=== PATIENT | male | born 2000 | race Caucasian/White ===

== ENCOUNTER 2024-02-18 12:35 | Emergency (ER) | payer OTHER, SELFPAY ==
[2024-02-18 12:36] VITALS: BP 125/75
[2024-02-18 12:49] VITALS: BP 151/88
[2024-02-18 13:16] LABS: % Basophils 0.4 % (0-2); % Eosinophils 1.4 % (0-6); % Immature Granulocytes 0.4 % (0-0.5); % Lymphocytes 15.8 % (20.5-51.1); % Monocytes 10.7 % (1.7-9.3); % Neutrophils 71.3 % (42.2-75.2); Absolute Eosinophils 0.1 10^3/uL (0-0.7); Absolute Lymphocytes 1.3 10^3/uL (1.2-3.4); Absolute Monocytes 0.9 10^3/uL (0.1-0.6); Absolute Neutrophils 5.7 10^3/uL (1.4-6.5); Hematocrit 41.7 % (39.0-52.0); Mean Corpuscular Hgb 29.4 pg (27.0-31.0); Mean Corpuscular Volume 81.6 fL (80.0-94.0); Mean Platelet Volume 9.4 fL (7.4-10.4); Nucleated Red Blood Cells % 0 % (-); Platelet Count 269 10^3/uL (130-400); Red Blood Cell Count 5.11 10^6/uL (4.70-6.10); Red Cell Dist. Width 11.9 % (11.5-14.5); White Blood Cell Count 7.9 10^3/uL (4.8-10.8)
[2024-02-18 13:25] VITALS: BP 109/93
[2024-02-18 13:29] LABS: ALT (SGPT) 26 U/L (0-50); AST (SGOT) 32 U/L (17-59); Albumin 4.8 g/dl (3.5-5.0); Alkaline Phosphatase 71 U/L (38-126); Blood Urea Nitrogen 21 mg/dl (9-20); Calcium 9.8 mg/dl (8.4-10.2); Carbon Dioxide 26 mmol/L (22-30); Chloride 102 mmol/L (98-107); Glucose 112 mg/dl (70-99); Potassium 4.1 mmol/L (3.5-5.1); Sodium 137 mmol/L (135-145); Total Bilirubin 0.8 mg/dl (0.2-1.3); Total Protein 7.5 g/dl (6.3-8.2); eGFR > 60.00
[2024-02-18 13:31] LABS: INR 1.18; PT 14.8 Sec (11.4-14.6)
[2024-02-18 13:32] LABS: APTT 28.7 Sec (23.4-35.0)
--- NOTE | 2024-02-18 13:51 | ED.GENMED ---
History of Present Illness
General
Chief Complaint: Fall
Source: patient
Time Seen by Provider: 02/18/24 12:48
Travel History
Have you had any contact with someone who has COVID-19?: No
Do you have any symptoms of coronavirus? Fever > 100 degrees, chills, cough, shortness of breath, sore throat, loss of taste or smell, muscle aches, or headache?: No
History of Present Illness
History of Present Illness:
23-year-old male presenting to the emergency department for evaluation after he was at the top of a 15 foot ladder when he excellently fell straight down onto his buttock stating he is having significant left-sided buttock/back pain and left lower
leg pain. Patient states he does not believe he hit his head, loss consciousness or injured any other extremity. He did not take anything for pain prior to arrival. Patient's mother drove him to the ER for further evaluation. Patient has no
other significant medical history and denies any use of chronic medications. Denies any previous history of injury to the left leg or pelvis in the past
Past History
Past History
ED Past Medical History: None
ED Past Surgical History: Tonsilectomy
Social History
Tobacco: Non-smoker
Alcohol: None
Drug: None
Personal: Single
Living: with family
Employment: Employed
Review of Systems
Review of Systems
All Other Systems: ROS reviewed and negative except as documented in HPI and ROS
Phy Exam
Physical Exam
Physical Exam:
VITAL SIGNS: Vital signs reviewed, cooperative
DISTRESS: No active disease
EYES: Pupils reactive, no orbital trauma
NOSE: No deformity or epistaxis
FACE AND SCALP: No scalp or facial trauma, external canals no blood
NECK: Supple nontender
BACK: scale reclamation tender over the sacral region as well as the left posterior superior iliac spine and iliac crest, pelvis stable to compression
RESPIRATORY: No distress, breath sounds normal, no tender chest wall
CARDIAC: No murmur, pulses equal and strong
ABDOMEN: Soft nontender bowel sounds normal
SKIN: superficial contusions to the anterior left lower leg just distal to the knee, color normal
EXTREMITIES: Tenderness over the mid gastrocnemius left lower extremity. Easily palpable pedal and tibial pulses bilateral cap refill less than 2 seconds. Sensation grossly intact light touch.
NEUROLOGICAL: Alert, oriented, no motor deficits
PSYCH: Mood affect normal
Scores
Heart Failure Risk
Heart Failure Risk Score: Not Applicable
Heart Score for Chest Pain Patients
STEMI patient?: Not applicable
Withdrawal Assessment of Alcohol
Withdrawal Assessment Completed?: Not applicable
Course
Orders/Labs/Results
Orders:
Orders
02/18/24 12:53
CT Cervical Spine W/o Iv Contr Urgent
Comment:
Reason For Exam: fall 15 feet from ladder
CT Chest/abd/pel W Iv Cont Urgent
Reason For Exam: fall 15 feet from ladder,left sidedback/flank pain
CT Head W/o Iv Contrast Urgent
Comment:
Reason For Exam: fall 15 feet from ladder, ? head injury
02/18/24 13:06
Complete Blood Count/With Diff Urgent
Comprehensive Metabolic Panel Urgent
PTT Urgent
Prothrombin Time Urgent
02/18/24 13:26
Morphine Sulfate 4 mg IV NOW STA
02/18/24 13:27
CR Leg Tibia/fibula Left 2 Vw Urgent
Comment:
Reason For Exam: fall from ladder
02/18/24 13:30
Acetaminophen [Tylenol] 650 mg PO NOW STA
02/18/24 14:02
Crutches-Treatment ONCE
Abnormal Lab Results
02/18/24
13:06
Absolute Monos (auto) 0.9 H 10^3/uL
(0.1-0.6)
Lymphocytes % 15.8 L %
(20.5-51.1)
Monocytes % 10.7 H %
(1.7-9.3)
PT 14.8 H Sec
(11.4-14.6)
BUN 21 H mg/dl
(9-20)
Glucose 112 H mg/dl
(70-99)
02/18/24 13:06
02/18/24 13:06
Vital Signs
Initial and Last Documented VS:
Initial Vital Signs
Temp Pulse Resp BP Pulse Ox
98.2 F 80 20 125/75 95
02/18/24 12:36 02/18/24 12:36 02/18/24 12:36 02/18/24 12:36 02/18/24 12:36
Last Documented Vital Signs
Temp Pulse Resp BP Pulse Ox
98.2 F 70 16 110/69 98
02/18/24 12:36 02/18/24 14:28 02/18/24 14:28 02/18/24 14:28 02/18/24 14:28
MDM/Problems Addressed
Differential Diagnosis Includes:
Pelvic fracture, sacral fracture, left tib-fib fracture, contusion, other significant traumatic injury
MDM/Problems Addressed:
23-year-old male presenting emergency department for evaluation after reportedly falling 15 feet from a ladder. Patient noting significant left-sided pelvic pain and inability to press weight onto his left lower extremity. Due to the nature of the
injury trauma scans ordered. Patient initially declining anything for pain. Patient and mother in agreement with workup.
*Radiology
Radiology exam reviewed: radiology read reviewed
*Pulse Oximetry
Patient hypoxic: no
*Critical Care Note
Total Time (30-74mins, 75-104mins- exclusive of procedures): Not Applicable
Patient Management
Escalation/DeEscalation of care consider admission/obs:
Patient's imaging without any significant findings. X-ray unremarkable for any fracture of the left lower leg. Suspect significant contusion. Advised rest, NSAIDs and avoidance of any heavy lifting over the next few days. Stable for discharge
home and aware of return precautions.
ED Attending Note
-
Portions of this chart may have been created with voice recognition software.� Occasional wrong word or��sound alike� substitutions may have occurred due to the inherent limitations of voice recognition software.
Discharge Plan
Departure
Patient Disposition: Home (Routine Discharge)
Date of Disposition: 02/18/24
Time of Disposition: 14:02
Patient with high blood pressure during this ER visit?: No
Discharge Problem:
Fall from ladder, Contusion of pelvis, Leg pain, left
Instructions: Contusion (DC)
Prescriptions:
No Action
Acne Medication
1 tab PO HS
ibuprofen 600 MG tablet
600 mg PO Q6 PRN (Reason: pain) Qty: 20 0RF
Referrals:
Venu Ortega, DO [Family Provider] -
Interventions
Interventions:
*Risk Screen - Suicide Last Done: 02/18/24 12:36
*General Assessment Last Done: 02/18/24 12:36
*Neglect/Abuse Screening Last Done: 02/18/24 12:36
*Nursing Disposition Last Done: 02/18/24 14:28
ED-Musculoskeletal Assessment Last Done: 02/18/24 13:13
ED- Neurological Assessment Last Done: 02/18/24 13:13
ED-Skin Assessment Last Done: 02/18/24 13:13
Discharge Date and Time
Discharge Date/Time: 02/18/24 14:29
Print Language: OMANI
[2024-02-18 13:55] VITALS: BP 149/70
[2024-02-18 14:00] VITALS: BP 116/76
[2024-02-18] MEDS: TYLENOL 650 MG PO (14:04)
[2024-02-18 14:05] VITALS: BMI 29.6
[2024-02-18 14:28] VITALS: BP 110/69
== END 2024-02-18 14:29 | disposition home or self-care (01) ==
LOC: EMR 12:35
PROVIDERS: Physician Assistant Medical; EMERGENCY PHYSICIAN Emergency Medicine; FAMILY PHYSICIAN Family Medicine
DX: S30.0XXA Contusion of lower back and pelvis, initial encounter (principal); S80.12XA Contusion of left lower leg, initial encounter; M79.605 Pain in left leg; R10.2 Pelvic and perineal pain; W11.XXXA Fall on and from ladder, initial encounter
CPT/HCPCS: 99285; 70450; 71260; 72125; 73590; 74177; 80053; 85025; 85610; 85730; Q9967

== ENCOUNTER 2025-03-07 10:55 | Emergency (ER) | payer OTHER, SELFPAY ==
[2025-03-07 11:01] VITALS: BP 133/87
--- NOTE | 2025-03-07 12:06 | ED.GENMED ---
History of Present Illness
General
Chief Complaint: Skin Problem
Source: patient and family (Mother)
Exam Limitations: none
Time Seen by Provider: 03/07/25 11:22
Nursing documentation reviewed up to this point in time: agreed with
History of Present Illness
History of Present Illness:
24-year-old male with no reported chronic medical issues presents to the ER for evaluation of bump in his right groin in the setting of recent pilonidal abscess. Patient reports that a few weeks ago he had small folliculitis in the suprapubic
region that has essentially resolved at this point; patient reports that little over a week ago he started to have pain in his buttock that felt similar to when he had this bump in the suprapubic region. He ultimately was seen in urgent care a few
days ago and was diagnosed with pilonidal abscess. He was prescribed doxycycline at that time and has been taking this for the past 2 days. Yesterday he saw community sports coordinator to follow-up on his urgent care visit where he underwent incision and
drainage of the pilonidal abscess. He was referred to a surgeon for removal of pilonidal cyst after acute infection is treated. He says that over the past 24 hours he started to notice a small bump in his right inguinal crease. He was concerned
that this could be a developing abscess and decided he would come to the ER to have it evaluated. He denies any fever, chills or any other acute complaints.
Past History
Past History
ED Past Medical History: None
ED Past Surgical History: Tonsilectomy
Social History
Tobacco: Non-smoker
Alcohol: None
Drug: None
Personal: Single
Living: with family
Employment: Employed
Review of Systems
Review of Systems
All Other Systems: ROS reviewed and negative except as documented in HPI and ROS
Constitutional: Denies fever
Skin: Reports other (Pilonidal abscess)
Phy Exam
Physical Exam
Physical Exam:
General: Awake, alert; no acute distress
Head: Normocephalic, atraumatic
Eyes: Conjunctiva normal
Throat: Airway intact, handling secretions
Neck: Trachea midline
Lungs: Breathing comfortably no distress
Heart: Regular rate
Abd: Soft, non distended, nontender
: Patient has palpable lymph node right inguinal crease; in the suprapubic region he has tiny area of erythema at the base of a hair follicle with no warmth, swelling, induration or fluctuance
Rectal: Patient has pilonidal abscess�approximately 5 cm area of erythema and warmth in the pilonidal region�there is a central small incision but no active drainage, no fluctuance; area is diffusely tender
Neuro: No gross deficits
Skin: As above
Extremities: Warm and well-perfused
Scores
Heart Failure Risk
Heart Failure Risk Score: Not Applicable
Heart Score for Chest Pain Patients
STEMI patient?: Not applicable
Withdrawal Assessment of Alcohol
Withdrawal Assessment Completed?: Not applicable
Course
Orders/Labs/Results
Orders:
Orders
03/07/25 11:34
MetroNIDAZOLE [Flagyl] 500 mg PO NOW STA
Vital Signs
Initial and Last Documented VS:
Initial Vital Signs
Temp Pulse Resp BP Pulse Ox
36.4 C 78 16 133/87 98
03/07/25 11:01 03/07/25 11:01 03/07/25 11:01 03/07/25 11:01 03/07/25 11:01
Last Documented Vital Signs
Temp Pulse Resp BP Pulse Ox
36.4 C 78 16 133/87 98
03/07/25 11:01 03/07/25 11:01 03/07/25 11:01 03/07/25 11:01 03/07/25 11:01
MDM/Problems Addressed
Differential Diagnosis Includes:
Pilonidal abscess, adenopathy
MDM/Problems Addressed:
24-year-old male presents with pilonidal abscess and today notes bump in his right groin. He also has an improving small inflamed folliculitis in the suprapubic region. Vitals and exam as above. Regarding his primary concern today which is a bump
in his right inguinal crease�this appears to be an enlarged lymph node likely in the setting of his recent infection. Regarding his pilonidal abscess�he already had I&D yesterday with community sports coordinator and is scheduled for surgical follow-up for
removal of cyst. There is no additional drainage today and no fluctuance. He does have cellulitis in the area. He is currently on doxycycline which would cover for MRSA and strep, E. coli; given location I think it would be reasonable to add
anaerobic coverage with metronidazole. Patient feels comfortable with this plan. Stable for discharge.
*Pulse Oximetry
SaO2: 98
Oxygen Mode of Delivery: Room air
Patient hypoxic: no (98%)
*Critical Care Note
Total Time (30-74mins, 75-104mins- exclusive of procedures): Not Applicable
Data Reviewed
Source: patient and family
ED Attending Note
-
Portions of this chart may have been created with voice recognition software.� Occasional wrong word or��sound alike� substitutions may have occurred due to the inherent limitations of voice recognition software.
Discharge Plan
Departure
Patient Disposition: Home (Routine Discharge)
Date of Disposition: 03/07/25
Time of Disposition: 11:34
Patient with high blood pressure during this ER visit?: No
Discharge Problem:
Pilonidal abscess
Instructions: Pilonidal Disease
Prescriptions:
New
metronidazole 500 mg tablet
500 mg PO TID Qty: 21 0RF
No Action
Acne Medication
1 tab PO HS
ibuprofen 600 MG tablet
600 mg PO Q6 PRN (Reason: pain) Qty: 20 0RF
Activity Restrictions/Additional Instructions:
Thank you for visiting the Emergency Department at [facility].
1. Please schedule a follow up appointment as directed. Call first thing tomorrow morning to make an appointment.
2. If indicated, please take your medications as instructed and indicated on discharge paperwork.
3. If any of your symptoms do not improve, or persist, or become more severe within 6-12 hours, please return to the emergency department for further care.
4. Please return to the emergency department if you develop a headache, neck pain/stiffness, fever greater than 100.4F, chest pain, shortness of breath, persistent nausea, vomiting, slurred speech, difficulty walking, numbness/tingling, weakness,
signs of infection or any other symptoms that are worrisome to you.
Please call [phone] if you have any questions.
Discharge Date and Time
Print Language: MAORI
[2025-03-07] MEDS: FLAGYL 500 MG PO (12:11)
== END 2025-03-07 16:40 | disposition home or self-care (01) ==
LOC: EMR 10:55
PROVIDERS: EMERGENCY PHYSICIAN Emergency Medicine; FAMILY PHYSICIAN Family Medicine
DX: L05.01 Pilonidal cyst with abscess (principal); Z79.2 Long term (current) use of antibiotics
CPT/HCPCS: 99282; 10080